=== PATIENT | male | born 1980 | race Caucasian/White ===

== ENCOUNTER 2021-07-25 19:03 | Emergency (ER) | payer OTHER, SELFPAY ==
[2021-07-25 19:29] VITALS: BP 180/95; PULSE 78; RESP 15; TEMP 36.5; O2SAT 99; BMI 39.3
--- NOTE | 2021-07-25 19:37 | DI.RAD.S_ITS ---
PROCEDURE: XR HAND LT MIN 3V INDICATIONS: ax to base of left 2nd finger TECHNIQUE: 3 views of the hand(s) acquired. COMPARISON: None. FINDINGS: Bones: No fractures or dislocations. Carpal bones are normally aligned. No suspicious bony lesions. Soft tissues: No suspicious soft tissue calcifications. IMPRESSION: No fracture or foreign body seen. Dictated by: Андрей Prince M.D. on 07/25/2021 at 20:19 Approved by: Андрей Prince M.D. on 07/25/2021 at 20:19
[2021-07-25] MEDS: LIDO 1%/SOD BICARB 8.4% (10ML) 10 ML SYRINGE INJ (19:58)
[2021-07-25] MEDS: KETOROLAC 30 MG/ML VIAL 15 MG IM (19:58)
[2021-07-25] MEDS: TET,DIPH,PERTUSS(ACELL),VAC/PF 0.5 ML SYRINGE IM (19:59)
--- NOTE | 2021-07-25 21:02 | ED.SKABFB ---
HPI - Skin/Abscess/Foreign Bdy <EUNICE Aponte - Last Filed: 07/25/21 21:14> General Chief complaint: Skin/Abscess/Foreign Body Stated complaint: cut lt finger/hand with ax Time Seen by Provider: 07/25/21 19:38 Source: patient Mode of arrival: Ambulatory Limitations: no limitations History of Present Illness HPI narrative: This is a 41-year-old male who presents to the emergency department with left hand injury which happened while he was using an ax and accidentally struck his left index finger. Patient does not remember when his last tetanus was, denies any significant medical history, denies any anticoagulant. Has a pressure dressing on, denies taking any medication prior to arrival. Patient has full range of motion of his left 2nd finger and hand. He denies any sensation changes. Related Data Home Medications Medication Instructions Recorded Confirmed No Known Home Medications 07/25/21 07/25/21 Previous Rx's Medication Instructions Recorded doxycycline hyclate 100 mg capsule 100 mg PO BID 5 Days #10 cap 07/25/21 mupirocin 2 % topical ointment 1 applic TOPICAL BID #15 g 07/25/21 Allergies Allergy/AdvReac Type Severity Reaction Status Date / Time No Known Drug Allergies Allergy Verified 07/25/21 19:36 Review of Systems <EUNICE Aponte - Last Filed: 07/25/21 21:14> Review of Systems Narrative: General: denies fever, chills Head/Neck: denies headache, neck pain Eyes: denies visual changes, eye pain Cardio: denies chest pain, palpitations Respiratory: denies shortness of breath, cough MSK: denies joint pain, muscle weakness, denies sensation changes, denies any bony pain Skin: denies rash, itching, laceration over MCP joint on left hand Neuro: denies numbness, tingling Patient History <EUNICE Aponte - Last Filed: 07/25/21 21:14> Social History Smoking Status: Former smoker Smoking Status: Former smoker alcohol intake frequency: 3 or more drinks per day Substance Use Type: does not use Exam <EUNICE Aponte - Last Filed: 07/25/21 21:14> Narrative Exam Narrative: Independently reviewed vitals signs and nursing notes. General: cooperative, comfortable, in no acute distress, well developed and well groomed Head: atraumatic, symmetrical facial expressions Neck: supple, atraumatic, without lymphadenopathy. Eyes: pupils equal round and reactive, EOMI, conjunctiva normal Nose: nares patent, no rhinorrhea Mouth/Throat: uvula midline, moist mucus membranes Cardiovascular: regular rate and rhythm, no peripheral edema, warm extremities Respiratory: normal effort, able to speak in complete sentences, no audible wheezing, stridor, or rales. No retractions or tachypnea. GI: abdomen soft, nontender to palpation, nondistended, no masses, no exquisite tenderness with exam, without guarding or rebound. MSK: moves all extremities, ambulatory w/steady gait, neurovascularly intact, no weakness Skin: brisk capillary refill, no rash, no erythema, laceration over the MCP joint on the left 2nd digit extending from the dorsum onto the palmar medial aspect, bleeding controlled, wound cleansed with hibicleanse Neuro: normal speech and cognition, A&O x3, normal tone Psych: mental status is grossly normal, congruent mood, normal affect, pleasant and cooperative Initial Vital Signs Initial Vital Signs: Vital Signs Temperature 97.7 F 07/25/21 19:29 Pulse Rate 78 07/25/21 19:29 Respiratory Rate 15 07/25/21 19:29 Blood Pressure 180/95 H 07/25/21 19:29 Pulse Oximetry 99 07/25/21 19:29 <Lex Thomas DO - Last Filed: 07/25/21 21:46> Initial Vital Signs Initial Vital Signs: Vital Signs Temperature 97.7 F 07/25/21 19:29 Pulse Rate 78 07/25/21 19:29 Respiratory Rate 15 07/25/21 19:29 Blood Pressure 180/95 H 07/25/21 19:29 Pulse Oximetry 99 07/25/21 19:29 Procedures <EUNICE Aponte - Last Filed: 07/25/21 21:14> Laceration Repair Laceration 1: Site: hand (Over MCP joint extending onto palmar aspect) Side (If applicable): left Size (cm): 3 Description: flap and clean Depth: simple, single layer Local Anesthetic: lidocaine 1% and with bicarb Amount of anesthesia used (mL): 5 Pre-repair: wound explored, irrigated extensively and deep structures intact Skin layer closed with: nylon Skin layer suture size: 5-0 Number of sutures: 12 Technique: simple, interrupted Course <EUNICE Aponte - Last Filed: 07/25/21 21:14> Orders Ordered: ED Orders 07/25/21 19:37 XR hand LT min 3V Stat Discontinued Medications Bacitracin (Bacitracin Oint 0.9 Gm Pckt) 1 applic TOP NOW ONE Stop: 07/25/21 20:59 Last Admin: 07/25/21 21:10 Dose: 1 applic Documented by: GILDA Diphtheria/Tetanus/Acell Pertussis (Tet,Diph,Pertuss(Acell),Vac/Pf 0.5 Ml Syringe) 0.5 ml IM .ONCE ONE Stop: 07/25/21 19:40 Last Admin: 07/25/21 19:59 Dose: 0.5 ml Documented by: GILDA Ketorolac Tromethamine (Ketorolac 30 Mg/Ml Vial) 15 mg IM NOW ONE Stop: 07/25/21 19:43 Last Admin: 07/25/21 19:58 Dose: 15 mg Documented by: GILDA Lidocaine/Sodium Bicarbonate (Lido 1%/Sod Bicarb 8.4% (10ml) 10 Ml Syringe) 10 ml INJ NOW ONE Stop: 07/25/21 19:43 Last Admin: 07/25/21 19:58 Dose: 10 ml Documented by: GILDA Vital Signs Vital signs: Vital Signs - 8 hr 07/25/21 19:29 07/25/21 21:16 Temperature 97.7 F Pulse Rate 78 75 Respiratory Rate 15 16 Blood Pressure 180/95 H 147/85 H Pulse Oximetry 99 97 <Lex Thomas DO - Last Filed: 07/25/21 21:46> Orders Ordered: ED Orders 07/25/21 19:37 XR hand LT min 3V Stat Discontinued Medications Bacitracin (Bacitracin Oint 0.9 Gm Pckt) 1 applic TOP NOW ONE Stop: 07/25/21 20:59 Last Admin: 07/25/21 21:10 Dose: 1 applic Documented by: GILDA Diphtheria/Tetanus/Acell Pertussis (Tet,Diph,Pertuss(Acell),Vac/Pf 0.5 Ml Syringe) 0.5 ml IM .ONCE ONE Stop: 07/25/21 19:40 Last Admin: 07/25/21 19:59 Dose: 0.5 ml Documented by: GILDA Ketorolac Tromethamine (Ketorolac 30 Mg/Ml Vial) 15 mg IM NOW ONE Stop: 07/25/21 19:43 Last Admin: 07/25/21 19:58 Dose: 15 mg Documented by: GILDA Lidocaine/Sodium Bicarbonate (Lido 1%/Sod Bicarb 8.4% (10ml) 10 Ml Syringe) 10 ml INJ NOW ONE Stop: 07/25/21 19:43 Last Admin: 07/25/21 19:58 Dose: 10 ml Documented by: GILDA Vital Signs Vital signs: Vital Signs - 8 hr 07/25/21 19:29 07/25/21 21:16 Temperature 97.7 F Pulse Rate 78 75 Respiratory Rate 15 16 Blood Pressure 180/95 H 147/85 H Pulse Oximetry 99 97 MDM - Skin/Abscess/Foreign Bdy <EUNICE Aponte - Last Filed: 07/25/21 21:14> Imaging Data Extremity x-ray #1: Radiologist's Impression: PROCEDURE:? XR HAND LT MIN 3V ? INDICATIONS:? ax to base of left 2nd finger ? TECHNIQUE:? 3 views of the hand(s) acquired.? ? COMPARISON:? None. ? FINDINGS:? ? Bones:? No fractures or dislocations.? Carpal bones are normally aligned.? No suspicious bony lesions.? ? Soft tissues:? No suspicious soft tissue calcifications.? ? ? IMPRESSION:? No fracture or foreign body seen. ? ? Dictated by: Андрей Prince M.D. on 07/25/2021 at 20:19 ? ? Approved by: Андрей Prince M.D. on 07/25/2021 at 20:19 ? MDM Narrative Medical decision making narrative: This is a 41 year old male who presents to the emergency department complaining left calf pain after he accidentally struck his hand with an Axe just prior to arrival lacerating the medial aspect the dorsum of his left hand over the MCP joint which extends onto the palmar. Approximately 3 cm long, wound was cleansed with Hibiclens, x-ray was negative for fracture, foreign body, malalignment. Wound was repaired with 12 sutures of 5 0 Ethilon, patient was anesthetized locally with 1% lidocaine buffered with sodium bicarb. Patient tolerated well, apply bacitracin, bulky gauze dressing, and splint for protection with a volar metal finger splint. CSM intact distally, patient understands to have his sutures removed in 10 days, keep it clean, elevated, ice, Tylenol and Motrin for pain. He was given a prescription doxycycline to take for 5 days if he notices any signs of infection due to the wound occurring outside, had some dirt surrounding the wound, and he has not had at tetanus in a long time. His tetanus was updated. Patient is appropriate and amenable to discharge home. Vital signs are stable on repeat examination is unremarkable. Patient has been informed of results. Patient has been given strict return to ER precautions for any new or worsening symptoms. Patient understands to follow up closely with outpatient providers as instructed. Patient understands plan and agrees to discharge home. All questions and concerns answered at this time. Discharge Plan Departure Patient Disposition: Home Clinical Impression: Finger laceration Qualifiers: Encounter type: initial encounter Finger: index finger Damage to nail status: without damage Foreign body presence: without foreign body Laterality: left Qualified Code(s): S61.211A - Laceration without foreign body of left index finger without damage to nail, initial encounter Instructions: DI for Laceration Repair -- Finger Activity Restrictions/Additional Instructions: *You have been diagnosed with a laceration to your left index finger requiring 12 sutures. Please have these removed in 10 days. You may come back here or have your take them out. Please keep this covered with antibiotic ointment and a Band-Aid. You may ice this, take ibuprofen, Tylenol, keep it elevated as you can and keep a dressing over it while it was still oozy and healing. Keep it well covered while you are working in a latex glove inside her glove. If you notice any redness or streaking up your hand, signs of infection including worsening swelling, worsening pain, increasing redness, start taking the antibiotic. Thank you for trusting us with your care, it was a pleasure to meet you both, please keep this clean, you may wash your hands with regular soap, apply ointment, keep it covered, and it will probably get better. :) *What to do: *Please continue to take your regular medications as directed. [x ] New medication prescriptions sent to your pharmacy: [[facility] ] [ ] New medication written as a paper prescription [ ] No new medications given *Please follow up with your primary care provider in 2-3 days, call for an appointment. Let them know you were seen in the Emergency Department and that we asked that you be seen for follow-up. We will electronically transmit a record of today's note if your PCP is in our system *If you do not have a primary care provider please contact [phone] to establish care with one of the [facility] primary care providers. *Return to Emergency Department if you should have any new, worsening or concerning symptoms, such as [fever greater than 101F, chills, worsening pain, persistent vomiting or other bothersome symptoms] Prescriptions: New doxycycline hyclate 100 mg capsule 100 mg PO BID 5 Days Qty: 10 0RF mupirocin 2 % ointment 1 applic topical BID Qty: 15 0RF No Action No Known Home Medications 0RF <Lex Thomas, DO - Last Filed: 07/25/21 21:46> Cosign ED Attending Cosignature Attestation: Dr Thomas Co-Sign Statement: I was available for consultation during this patient's emergency department visit. This chart is signed by myself for administrative purposes only. I did not have direct contact with this patient during this visit. They were seen independently by the APC.
[2021-07-25] MEDS: BACITRACIN OINT 0.9 GM PCKT 1 APPLIC TOP (21:10)
[2021-07-25 21:16] VITALS: BP 147/85; PULSE 75; RESP 16; O2SAT 97
== END 2021-07-25 21:19 | disposition home or self-care (01) ==
PROVIDERS: Emergency Provider Nurse Practitioner Critical Care Medicine
DX: S61.211A Laceration without foreign body of left index finger without damage to nail, initial encounter (principal); Z87.891 Personal history of nicotine dependence; W22.8XXA Striking against or struck by other objects, initial encounter; Y93.89 Activity, other specified; Z23 Encounter for immunization
CPT/HCPCS: 12002; 73130; 90471; 96372; 99283; 99284; 90715; J1885

== ENCOUNTER 2023-01-25 17:08 | Emergency (ER) | payer OTHER, SELFPAY ==
[2023-01-25] VITALS (11 sets, daily range): BP systolic 151–198; BP diastolic 91–102; PULSE 60–76; RESP 15–24; TEMP 36.8; O2SAT 97–99; BMI 42.0
--- NOTE | 2023-01-25 17:24 | DI.RAD.S_ITS ---
PROCEDURE: XR CHEST 1V INDICATIONS: chest pain TECHNIQUE: One view of the chest was acquired. COMPARISON: [facility], , CHEST 2 VIEW, 01/24/2008, 12:04. FINDINGS: Surgical changes and devices: None. Lungs and pleura: Lungs are clear. No pleural effusions or pneumothorax. Mediastinum: Mediastinal contours appear normal. Heart size is normal. Bones and chest wall: No suspicious bony lesions. Overlying soft tissues appear unremarkable. IMPRESSION: No acute cardiopulmonary abnormality. Dictated by: Javan Mcknight M.D. on 01/25/2023 at 17:43 Approved by: Javan Mcknight M.D. on 01/25/2023 at 17:46
[2023-01-25 17:31] LABS: INR 0.9 (0.9-1.3); Prothrombin Time 10.5 SECONDS (10.1-12.7)
[2023-01-25 17:33] LABS: Add Manual Diff / Slide Review NO; Basophils Absolute Auto 100 /uL (0-100); Basophils Percent Auto 0.8 % (0-2); Eosinophils Absolute Auto 300 /uL (0-450); Eosinophils Percent Auto 2.9 % (2-4); Hematocrit 45.6 % (41-53); Hemoglobin 15.9 g/dL (13.5-17.5); Lymphocytes Absolute Auto 2700 /uL (1100-4500); Lymphocytes Percent Auto 27.1 % (25-40); Mean Corpuscular HGB Conc 34.9 % (30-36); Mean Corpuscular Hemoglobin 28.9 PG (26-34); Mean Corpuscular Volume 82.9 fL (80-100); Monocytes Absolute Auto 800 /uL (0-900); Neutrophils Absolute Auto 6000 /uL (1500-7000); Neutrophils Percent Auto 61.2 % (50-75); Platelet Count 230 X10^3/uL (150-400); Red Cell Distribution Width 14.3 % (11.6-14.8); White Blood Cell Count 9.8 X10^3/uL (4.5-11.0)
--- NOTE | 2023-01-25 17:35 | DI.CT.S_ITS ---
PROCEDURE: CT ANGIO CHEST ABDOMEN PELVIS INDICATIONS: Dissection protocol/chest pain TECHNIQUE: Precontrast 5 mm thick sections acquired from the lung apices to the iliac crests. After the administration of intravenous contrast, 2.5 mm thick sections again acquired from the lung apices to the iliac crests. Maximum intensity projection (MIP) oblique sagittal and coronal reformats were then acquired. For radiation dose reduction, the following was used: automated exposure control. COMPARISON: None. FINDINGS: Image quality: Excellent. AORTA: No aortic dissection. No aortic aneurysm. No central pulmonary embolism. CHEST: Lungs and pleura: No acute airspace opacities. No pleural effusions or pneumothorax. Central and peripheral airways are patent and normal in caliber. Mediastinum: Heart size is normal. No pericardial effusion. No mediastinal or hilar adenopathy by size criteria. Central pulmonary arteries are normal in size. Esophagus is normal in caliber. No hiatal hernias. Bones and chest wall: No axillary adenopathy by size criteria. Thyroid gland is unremarkable. No suspicious bony lesions. No vertebral body compression fractures. ABDOMEN: Vasculature: No aortic aneurysm. Celiac trunk and mesenteric arteries are patent. Renal arteries are also patent. Solid organs: Liver is normal in size and enhancement. Gallbladder is unremarkable. Biliary system is non dilated. Pancreas enhances normally. Spleen is normal in size and enhancement. No adrenal nodules. Both kidneys are normal in size and enhancement, without hydronephrosis. No kidney stones. Peritoneum and bowel: No free fluid or air. Bowel loops are normal in caliber and wall thickness. Nodes and vessels: No retroperitoneal or mesenteric adenopathy by size criteria. Inferior vena cava is normal in morphology. Miscellaneous: Fat containing umbilical hernia. PELVIS: Genitourinary: Bladder wall thickness is normal. No stone. Miscellaneous: No inguinal hernias or adenopathy. No ventral hernias. Bones: No suspicious bony lesions. No vertebral body compression fractures. IMPRESSION: No aortic dissection. No aortic aneurysm. No pulmonary embolism. Lungs are clear. No acute abnormality in the abdomen or pelvis. No free fluid. Dictated by: Javan Mcknight M.D. on 01/25/2023 at 19:30 Approved by: Javan Mcknight M.D. on 01/25/2023 at 19:36
--- NOTE | 2023-01-25 17:36 | ED_ITS ---
HPI - Chest Pain <Davin Alexander MD - Last Filed: 02/03/23 07:21> General Chief Complaint: Chest Pain Stated Complaint: chest pain Time Seen by Provider: 01/25/23 17:29 Source: patient Mode of arrival: EMS History of Present Illness HPI narrative: Patient brought in by ambulance from work setting. Had sudden onset of left- sided chest pain that radiated to the mid back and to the left shoulder. It lasted about 10 minutes. No syncope. No numbness tingling or weakness. No nausea or vomiting. Patient has never had this before. Mother at bedside. There is coronary artery disease on mother's side of the family as well as father side of the family. Patient blood pressure noted. It is improving. Patient has never had cardiac workup in the past. Does not smoke cigarettes. He is not on blood pressure medication or cholesterol medication. Patient denies any pain or discomfort at this time. No history of pulmonary embolism or aortic dissection in family or patient Related Data Previous Rx's Medication Instructions Recorded mupirocin 2 % topical ointment 1 applic topical BID #15 grams 07/25/21 amlodipine 5 mg tablet 5 mg PO DAILY #30 tabs 01/25/23 Allergies Allergy/AdvReac Type Severity Reaction Status Date / Time No Known Drug Allergies Allergy Verified 01/25/23 17:20 Review of Systems <Davin Alexander MD - Last Filed: 02/03/23 07:21> Review of Systems Narrative: GENERAL: negative chills, fatigue, malaise, fever, sweats. HEENT: negative sinus pain, ear pain, sore throat RESPIRATORY: negative dyspnea, cough CARDIOVASCULAR: Positive chest pain, negative same could be negative palpitations GASTROINTESTINAL: negative nausea, vomiting, abdominal pain : negative dysuria, frequency, hematuria MUSCULOSKELETAL: negative muscle or bony pain SKIN: negative rash, skin lesions NEUROLOGIC: negative weakness, numbness ROS Unobtainable: All systems reviewed & are unremarkable except as noted in HPI and below Patient History <Davin Alexander MD - Last Filed: 02/03/23 07:21> Social History Smoking Status: Former smoker Smoking Status: Former smoker alcohol intake frequency: 3 or more drinks per day Substance Use Type: does not use Exam <Davin Alexander MD - Last Filed: 02/03/23 07:21> Narrative Exam Narrative: GENERAL: in no distress, not toxic not dyspneic HEAD: Normocephalic. EYES: Pupils equal round ENT: Mucous membranes moist. NECK: Trachea midline. CARDIOVASCULAR: Regular rate and rhythm, strong bilateral carotid and radial pulses RESPIRATORY: Clear to auscultation. Breath sounds equal bilaterally. No wheezes, rales, or rhonchi. GASTROINTESTINAL: Abdomen soft, non-tender, abdomen nontender. No peritoneal signs. No pain out of proportion to exam EXTREMITIES: No gross deformities. BACK: No flank tenderness. NEURO: AOx4. Clear speech. Light touch intact bilateral face and hands, strong equal live truck operator SKIN: Warm and dry PSYCH: Not anxious, is cooperative Initial Vital Signs Initial Vital Signs: Vital Signs Temperature 98.2 F 01/25/23 17:16 Pulse Rate 76 01/25/23 17:16 Respiratory Rate 20 01/25/23 17:16 Blood Pressure 198/102 H 01/25/23 17:16 Pulse Oximetry 98 01/25/23 17:16 Oxygen Delivery Method Room Air 01/25/23 17:16 <Jones Garcia DO - Last Filed: 01/25/23 21:49> Initial Vital Signs Initial Vital Signs: Vital Signs Temperature 98.2 F 01/25/23 17:16 Pulse Rate 76 01/25/23 17:16 Respiratory Rate 20 01/25/23 17:16 Blood Pressure 198/102 H 01/25/23 17:16 Pulse Oximetry 98 01/25/23 17:16 Oxygen Delivery Method Room Air 01/25/23 17:16 Scores <Davin Alexander MD - Last Filed: 02/03/23 07:21> HEART Score Heart Score Total: 2 <Jones Garcia DO - Last Filed: 01/25/23 21:49> HEART Score Heart Score history: Moderately Suspicious Heart Score EKG: Normal Heart Score Age: < 45 years old Heart Score risk factors: 1-2 risk factors Heart Score troponin: < or = to normal limit Heart Score Total: 2 Course <Davin Alexander MD - Last Filed: 02/03/23 07:21> Orders Ordered: Discontinued Medications Aspirin (Aspirin 81 Mg Chew Tab) 324 mg PO NOW ONE Stop: 01/25/23 17:25 Last Admin: 01/25/23 17:47 Dose: Not Given Documented By: ALISA Sodium Chloride (Normal Saline 0.9%) 500 mls @ 1,000 mls/hr IV BOLUS ONE Stop: 01/25/23 18:05 Last Infusion: 01/25/23 19:00 Dose: Infused Documented By: Admin: 01/25/23 18:15 Dose: 1,000 mls/hr Documented By: ALISA Vital Signs Vital signs: Vital Signs - 8 hr 01/25/23 17:16 01/25/23 17:34 01/25/23 17:35 Temperature 98.2 F Pulse Rate 76 69 71 Respiratory Rate 20 23 20 Blood Pressure 198/102 H 177/96 H Pulse Oximetry 98 99 98 Oxygen Delivery Method Room Air Room Air 01/25/23 18:00 01/25/23 18:30 01/25/23 19:00 Temperature Pulse Rate 64 65 60 Respiratory Rate 19 21 15 Blood Pressure Pulse Oximetry 99 98 99 Oxygen Delivery Method 01/25/23 19:15 01/25/23 19:15 01/25/23 19:30 Temperature Pulse Rate 61 Respiratory Rate 20 Blood Pressure 159/92 H 151/91 H Pulse Oximetry 99 Oxygen Delivery Method 01/25/23 19:30 01/25/23 20:00 01/25/23 20:30 Temperature Pulse Rate 60 63 64 Respiratory Rate 23 24 17 Blood Pressure Pulse Oximetry 98 99 98 Oxygen Delivery Method 01/25/23 20:53 01/25/23 20:53 Temperature Pulse Rate 62 Respiratory Rate 18 Blood Pressure 157/96 H Pulse Oximetry 97 Oxygen Delivery Method Room Air <Jones Garcia DO - Last Filed: 01/25/23 21:49> Orders Ordered: Discontinued Medications Aspirin (Aspirin 81 Mg Chew Tab) 324 mg PO NOW ONE Stop: 01/25/23 17:25 Last Admin: 01/25/23 17:47 Dose: Not Given Documented By: OW Sodium Chloride (Normal Saline 0.9%) 500 mls @ 1,000 mls/hr IV BOLUS ONE Stop: 01/25/23 18:05 Last Infusion: 01/25/23 19:00 Dose: Infused Documented By: Admin: 01/25/23 18:15 Dose: 1,000 mls/hr Documented By: ALISA Vital Signs Vital signs: Vital Signs - 8 hr 01/25/23 17:16 01/25/23 17:34 01/25/23 17:35 Temperature 98.2 F Pulse Rate 76 69 71 Respiratory Rate 20 23 20 Blood Pressure 198/102 H 177/96 H Pulse Oximetry 98 99 98 Oxygen Delivery Method Room Air Room Air 01/25/23 18:00 01/25/23 18:30 01/25/23 19:00 Temperature Pulse Rate 64 65 60 Respiratory Rate 19 21 15 Blood Pressure Pulse Oximetry 99 98 99 Oxygen Delivery Method 01/25/23 19:15 01/25/23 19:15 01/25/23 19:30 Temperature Pulse Rate 61 Respiratory Rate 20 Blood Pressure 159/92 H 151/91 H Pulse Oximetry 99 Oxygen Delivery Method 01/25/23 19:30 01/25/23 20:00 01/25/23 20:30 Temperature Pulse Rate 60 63 64 Respiratory Rate 23 24 17 Blood Pressure Pulse Oximetry 98 99 98 Oxygen Delivery Method 01/25/23 20:53 01/25/23 20:53 Temperature Pulse Rate 62 Respiratory Rate 18 Blood Pressure 157/96 H Pulse Oximetry 97 Oxygen Delivery Method Room Air MDM - Chest Pain <Davin Alexander MD - Last Filed: 02/03/23 07:21> Lab Data 01/25/23 17:10 01/25/23 17:10 Labs: Lab Results 01/25/23 01/25/23 Range/Units 17:10 19:50 WBC 9.8 (4.5-11.0) X10^3/uL RBC 5.50 (4.5-5.9) X10^6/uL Hgb 15.9 (13.5-17.5) g/dL Hct 45.6 (41-53) % MCV 82.9 (80-100) fL MCH 28.9 (26-34) PG MCHC 34.9 (30-36) % RDW 14.3 (11.6-14.8) % Plt Count 230 (150-400) X10^3/uL Neut % (Auto) 61.2 (50-75) % Lymph % (Auto) 27.1 (25-40) % [place] % (Auto) 8.0 (3-14) % Eos % (Auto) 2.9 (2-4) % Baso % (Auto) 0.8 (0-2) % Neut # (Auto) 6000 (2874-4621) /uL Lymph # (Auto) 2700 (7017-3416) /uL [place] # (Auto) 800 (0-900) /uL Eos # (Auto) 300 (0-450) /uL Baso # (Auto) 100 (0-100) /uL PT 10.5 (10.1-12.7) SECONDS INR 0.9 (0.9-1.3) APTT 31 (26-36) SECONDS Sodium 136 L (137-145) mmol/L Potassium 3.7 (3.4-5.1) mmol/L Chloride 100 (98-107) mmol/L Carbon Dioxide 28 (22-32) mmol/L BUN 17 (9-20) mg/dL Creatinine 1.00 (0.66-1.25) mg/dL Estimated GFR > 60 (>60) mL/min BUN/Creatinine Ratio 17.0 (6-22) Glucose 100 (70-100) mg/dL Calcium 9.8 (8.4-10.2) mg/dL Magnesium 1.9 (1.6-2.3) mg/dL Total Bilirubin 0.4 (0.2-1.3) mg/dL AST 38 (17-59) IU/L ALT 43 (<50) IU/L Alkaline Phosphatase 83 (38-126) U/L Total Creatine Kinase 147 121 (55-170) U/L Troponin I < 0.012 < 0.012 (0.01-0.034) ng/mL Total Protein 8.1 (6.3-8.2) g/dL Albumin 4.6 (3.5-5.0) g/dL Globulin 3.5 (1.7-4.1) g/dL Albumin/Globulin Ratio 1.3 (1.0-2.8) Lipase 44 (23-300) U/L [facility] Narrative Medical decision making narrative: Patient brought in by ambulance from work setting. Had sudden onset of left- sided chest pain that radiated to the mid back and to the left shoulder. It lasted about 10 minutes. No syncope. No numbness tingling or weakness. No nausea or vomiting. Patient has never had this before. Mother at bedside. There is coronary artery disease on mother's side of the family as well as father side of the family. Patient blood pressure noted. It is improving. Patient has never had cardiac workup in the past. Does not smoke cigarettes. He is not on blood pressure medication or cholesterol medication. Patient denies any pain or discomfort at this time. No history of pulmonary embolism or aortic dissection in family or patient After history and exam CBC CMP EKG troponin chest x-ray CT angiogram chest abdomen pelvis normal saline MDM CC: Chest pain Complicating co-morbidities: High blood pressure Data collected from: Patient and mother Medical records reviewed: No recent visit for this complaint Differential considered: Includes but not limited to STEMI non-STEMI aortic dissection pulmonary embolism angina Exam documented above, pertinent findings include: Nontender chest Lab Test results independently reviewed as above. Pertinent findings: WBC 9.8 hemoglobin 15.9 INR 0.9 sodium 136 potassium 3.7 BUN 17 creatinine 1.0 GFR greater than 60 AST 38 ALT 43 Independently reviewed EKG normal sinus rhythm normal EKG rate [address] elevation or depression Imaging studies independently reviewed: Consultations: Treatments: Normal saline Re-evaluations: Discussion: Diagnosis: 6:00 p.m. [place]: Sign out to Dr Garcia CT angiogram pending results. May need to review with Cardiology and hospitalist for disposition <Jones Garcia, - Last Filed: 01/25/23 21:49> Lab Data Labs: Lab Results 01/25/23 01/25/23 Range/Units 17:10 19:50 WBC 9.8 (4.5-11.0) X10^3/uL RBC 5.50 (4.5-5.9) X10^6/uL Hgb 15.9 (13.5-17.5) g/dL Hct 45.6 (41-53) % MCV 82.9 (80-100) fL MCH 28.9 (26-34) PG MCHC 34.9 (30-36) % RDW 14.3 (11.6-14.8) % Plt Count 230 (150-400) X10^3/uL Neut % (Auto) 61.2 (50-75) % Lymph % (Auto) 27.1 (25-40) % [place] % (Auto) 8.0 (3-14) % Eos % (Auto) 2.9 (2-4) % Baso % (Auto) 0.8 (0-2) % Neut # (Auto) 6000 (9079-5573) /uL Lymph # (Auto) 2700 (6873-7211) /uL [place] # (Auto) 800 (0-900) /uL Eos # (Auto) 300 (0-450) /uL Baso # (Auto) 100 (0-100) /uL PT 10.5 (10.1-12.7) SECONDS INR 0.9 (0.9-1.3) APTT 31 (26-36) SECONDS Sodium 136 L (137-145) mmol/L Potassium 3.7 (3.4-5.1) mmol/L Chloride 100 (98-107) mmol/L Carbon Dioxide 28 (22-32) mmol/L BUN 17 (9-20) mg/dL Creatinine 1.00 (0.66-1.25) mg/dL Estimated GFR > 60 (>60) mL/min BUN/Creatinine Ratio 17.0 (6-22) Glucose 100 (70-100) mg/dL Calcium 9.8 (8.4-10.2) mg/dL Magnesium 1.9 (1.6-2.3) mg/dL Total Bilirubin 0.4 (0.2-1.3) mg/dL AST 38 (17-59) IU/L ALT 43 (<50) IU/L Alkaline Phosphatase 83 (38-126) U/L Total Creatine Kinase 147 121 (55-170) U/L Troponin I < 0.012 < 0.012 (0.01-0.034) ng/mL Total Protein 8.1 (6.3-8.2) g/dL Albumin 4.6 (3.5-5.0) g/dL Globulin 3.5 (1.7-4.1) g/dL Albumin/Globulin Ratio 1.3 (1.0-2.8) Lipase 44 (23-300) U/L MDM Narrative Medical decision making narrative: Patient brought in by ambulance from work setting. Had sudden onset of left- sided chest pain that radiated to the mid back and to the left shoulder. It lasted about 10 minutes. No syncope. No numbness tingling or weakness. No nausea or vomiting. Patient has never had this before. Mother at bedside. There is coronary artery disease on mother's side of the family as well as father side of the family. Patient blood pressure noted. It is improving. Patient has never had cardiac workup in the past. Does not smoke cigarettes. He is not on blood pressure medication or cholesterol medication. Patient denies any pain or discomfort at this time. No history of pulmonary embolism or aortic dissection in family or patient After history and exam CBC CMP EKG troponin chest x-ray CT angiogram chest abdomen pelvis normal saline MDM CC: Chest pain Complicating co-morbidities: High blood pressure Data collected from: Patient and mother Medical records reviewed: No recent visit for this complaint Differential considered: Includes but not limited to STEMI non-STEMI aortic dissection pulmonary embolism angina Exam documented above, pertinent findings include: Nontender chest Lab Test results independently reviewed as above. Pertinent findings: WBC 9.8 hemoglobin 15.9 INR 0.9 sodium 136 potassium 3.7 BUN 17 creatinine 1.0 GFR greater than 60 AST 38 ALT 43 Independently reviewed EKG normal sinus rhythm normal EKG rate [address] elevation or depression Imaging studies independently reviewed: CTA chest/abd/pel - no PE, dissection, or aneurysm HEART Score 2 Treatments: Normal saline Re-evaluations: Patient blood pressure improves without intervention, symptom- free over course of visit Discussion: Patient with reassuring physical exam and lack of symptoms over duration of visit. Multiple diagnoses considered as noted above. Cardiac ischemia considered but thought unlikely given multiple nonischemic EKGs, lack of exertional symptoms, no exercise intolerance or associated symptoms such as dizziness, weakness or lightheadedness. Troponin x2 negative and low heart score. Vascular problem such as PE versus dissection considered but thought unlikely given lack of findings on imaging. Diagnosis: Atypical chest pain 6:00 p.m. Catherine: Sign out to Dr Garcia CT angiogram pending results. May need to review with Cardiology and hospitalist for disposition [1800] (Jose) Patient received in sign out from [Catherine]. I have reviewed the clinical course and performed an independent history and physical exam. Discharge Plan Departure Patient Disposition: Home Clinical Impression: Atypical chest pain Instructions: DI for Atypical Chest Pain Activity Restrictions/Additional Instructions: *You have been diagnosed with [atypical chest pain. As we discussed your history and physical exam are reassuring as are the labs, EKGs and imaging. There is no evidence of heart attack, blood clot, problem with the large blood vessels in her chest, pneumonia or other diagnosis that would require a specific or immediate intervention.] *What to do: *Please continue to take your regular medications as directed. Please consider taking a baby aspirin (81mg) daily [x ] New medication prescriptions sent to your pharmacy: [ [facility] in [place]] [ ] New medication written as a paper prescription [ ] No new medications given *Please follow up with your primary care provider in 2-3 days, call for an appointment. Let them know you were seen in the Emergency Department and that we ask that you be seen in follow up. We will electronically transmit a record of today's note if your PCP is in our system *If you do not have a primary care provider please contact the [facility] Resource line at [phone]. They will ask some questions about your medical history and help get you set up with a doctor in the community. *Return to Emergency Department if you should have any new, worsening or concerning symptoms, such as [fever greater than 101 F, shaking chills, worsening pain, persistent vomiting or other bothersome symptoms] Prescriptions: New amlodipine 5 mg tablet 5 mg PO DAILY Qty: 30 0RF No Action mupirocin 2 % ointment 1 applic topical BID Qty: 15 0RF Stand Alone Forms: Patient Portal/API, Work Release Note
[2023-01-25 17:37] LABS: Alanine Aminotransferase 43 IU/L (<50); Albumin 4.6 g/dL (3.5-5.0); Albumin Globulin Ratio 1.3 (1.0-2.8); Alkaline Phosphatase 83 U/L (38-126); Aspartate Aminotransferase 38 IU/L (17-59); Bilirubin Total 0.4 mg/dL (0.2-1.3); Blood Urea Nitrogen 17 mg/dL (9-20); Calcium 9.8 mg/dL (8.4-10.2); Carbon Dioxide 28 mmol/L (22-32); Chloride 100 mmol/L (98-107); Creatine Kinase 147 U/L (55-170); Estimated Glomerular Filt Rate > 60 mL/min (>60); Globulin 3.5 g/dL (1.7-4.1); Glucose 100 mg/dL (70-100); HEMOLYSIS < 15 (0-50); Lipase 44 U/L (23-300); Magnesium 1.9 mg/dL (1.6-2.3); Potassium 3.7 mmol/L (3.4-5.1); Sodium 136 mmol/L (137-145); Total Protein 8.1 g/dL (6.3-8.2)
[2023-01-25 17:48] LABS: Troponin I < 0.012 ng/mL (0.01-0.034)
[2023-01-25 18:01] LABS: PTT Partial Thromboplastin Tim 31 SECONDS (26-36)
[2023-01-25] MEDS: SODIUM CHLORIDE 0.9% 500 ML 1000 ML IV (18:15)
[2023-01-25 20:09] LABS: Creatine Kinase 121 U/L (55-170)
[2023-01-25 20:22] LABS: Troponin I < 0.012 ng/mL (0.01-0.034)
== END 2023-01-25 20:57 | disposition home or self-care (01) ==
PROVIDERS: Emergency Medicine; Emergency Provider Emergency Medicine
DX: R07.89 Other chest pain (principal); I10 Essential (primary) hypertension
CPT/HCPCS: 36415; 71045; 71275; 74174; 80053; 82550; 83690; 83735; 84484; 85025; 85610; 85730; 93005; 93010; 96360; 99284; Q9967